=== PATIENT | male | born 1960 | race African-American/Black ===

== ENCOUNTER 2016-07-02 08:47 | Emergency (ER) ==
[2016-07-02] MEDS ORDERED: ASPIRIN PO STA (08:58)
[2016-07-02] MEDS ORDERED: NITROGLYCERIN SL PRN (08:58)
[2016-07-02] MEDS ORDERED: ASPIRIN ONE (09:01)
--- NOTE | 2016-07-02 09:06 | ED EKG INTERP ---
EKG Interpretation - EKG Time of EKG reading by physician:: 08:56 EKG Read and Signed by:: Manuel Pereira EKG Interpretation (*Must complete 3 of following elements*): Normal Rate: 80 Rhythm: NSR [place]: normal QRS: normal CT Interval: normal ST Wave: normal Attestation - Scribe Verification/Attestation Scribe:: Marcus Ramos Acting as Scribe for:: Manuel Pereira Scribe documention review:: This chart was documented by a scribe and accurately reflects the service the provider performed and the decisions made by the provider. Physician Attestation - Physician Attestation I, the provider, attest to the following statement:: Manuel Pereira Physician documentation Attestation:: This documentation recorded by the scribe accurately reflects the service I personally performed and the decisions made by me.
[2016-07-02 09:11] LABS: MANUAL DIFF NEEDED? NO
[2016-07-02 09:27] LABS: BASO% 0.5 % (0.0-0.8); EOS# 0.07 X1000 (0.0-0.7); EOS% 1.1 % (0.0-10.0); HEMATOCRIT 46.5 % (42.0-52.0); HEMOGLOBIN 15.4 g/dL (14.0-18.0); LYMPH# 2.08 X1000 (1.2-3.4); MCH 27.6 PG (27-31); MCHC 33.1 g/dL (33-37); MCV 83.5 FL (81-99); MONO# 0.82 X1000 (0.11-0.59); MPV 9.3 FL (7.4-10.4); NEUT% 52.4 % (42.2-75.2); PLT 324 X1000 (130-400); RBC 5.57 XMIL (4.7-6.1)
[2016-07-02 09:30] LABS: INR 1.03; PROTIME 10.9 Seconds (9.2-11.7); PTT 29.2 Seconds (22.0-36.0)
--- NOTE | 2016-07-02 10:01 | Diag Imaging Result Document ---
PROCEDURE NAME: CHEST-2 VIEWS - 07/02/2016 TWO VIEWS OF THE CHEST: FINDINGS: There is a calcified granuloma in the right middle lobe. There is callus on the posterior right 8th rib which was evidently on the previous study of 02/11/2016. There was also evidently a fracture of the 9th rib previously. The heart size and pulmonary vascularity are within normal limits. IMPRESSION: No evidence of acute disease.
[2016-07-02 10:02] LABS: AGAP 15; ALKALINE PHOSPHATASE 126 U/L (32-122); BUN 15 mg/dL (8-22); CALCIUM 9.4 mg/dL (8.8-10.2); CHLORIDE 97 mmol/L (98-107); CK PROFILE 115 U/L (24-204); COSMO 272; GOT 13 U/L (10-34); GPT 10 U/L (10-44); MAGNESIUM 1.9 mg/dL (1.5-2.7); POTASSIUM 3.9 mmol/L (3.5-5.1); SODIUM 135 mmol/L (136-145); TCO2 23 mmol/L (25-35); TOTAL BILIRUBIN 0.42 mg/dL (0.20-1.00); TOTAL PROTEIN 8.2 g/dL (6.3-8.3)
[2016-07-02 10:09] LABS: URINE CULTURE NEEDED? NO; URINE MICRO REVIEW NEEDED? NO; URINE SOURCE CLEAN CATCH
[2016-07-02 10:13] LABS: BILIRUBIN URINE NEGATIVE (NEGATIVE); BLOOD URINE NEGATIVE (NEGATIVE); COLOR YELLOW; GLUCOSE URINE NEGATIVE (NEGATIVE); LEUKOCYTES URINE NEGATIVE (NEGATIVE); NITRITE URINE NEGATIVE (NEGATIVE); PH URINE 5.5; PROTEIN URINE NEGATIVE (NEGATIVE); SP GRAVITY URINE 1.017; TURBIDITY URINE CLEAR (CLEAR); UROBILINOGEN URINE NORMAL (NORMAL)
[2016-07-02 10:14] LABS: UR EPITHELIAL CELLS <10 /HPF (<10); URINE BACTERIA NEGATIVE /HPF; URINE RBC <10 /HPF (<10); URINE WBC <10 /HPF (<10)
[2016-07-02] MEDS ORDERED: CATAPRES PO ONE (10:26)
--- NOTE | 2016-07-02 10:32 | PROVIDER DOCUMENTATION ---
HPI-Chest Pain - General Chief Complaint: Chest Pain Stated Complaint: CP Time Seen by Provider: 07/02/16 10:17 Source: patient Allergies/Adverse Reactions: Patient Allergies Allergy/AdvReac Type Severity Reaction Status Date / Time No Known Allergies Allergy Verified 07/02/16 10:16 Home Medications: Home Medication List Medication Instructions Recorded Confirmed Last Taken Type Cyclobenzaprine [Flexeril] 10 mg PO TID #20 tablet 07/02/16 Unknown Rx Famotidine [Pepcid] 20 mg PO DAILY #20 tablet 07/02/16 Unknown Rx Ibuprofen [Motrin] 100 mg PO QAM PRN 07/02/16 07/02/16 1 Week Ago History Ibuprofen [Motrin] 800 mg PO Q8H PRN PRN #20 tablet 07/02/16 Unknown Rx Lisinopril 20 mg PO DAILY #30 tablet 07/02/16 Unknown Rx - History of Present Illness-CP Nature of Presenting Problem: 56 year old AAM presents with c/o left sided chest pain, non-radiating, exacerbated with movement forward and sitting up. pt reports it started 17 days ago upon awakening. pain is dull, constant. pt reports he has a history of HTN but is currently not taking anything to treat because he does not have a PMD. pt reports associated shortness of breath. denies nausea, vomiting, diaphoresis. pt reports he has been evaluated for this same pain years ago when he had a similar episode. Location: reports: other (left chest) Chest Pain Radiation: reports: no radiation Quality of Pain: reports: aching, dull Severity in ED: mild Onset/Duration: other (17 days ago) Timing: still present, constant Context/Activities at Onset: reports: none. denies: light activity, moderate activity, vigorous activity, recent emotional stress, recent physical stress, recent trauma history, possible bad food, cold exposure, eating, out of country travel, rest, sleep, sexual activity, other Modifying Factors: improves with: nothing Associated Symptoms: reports: shortness of breath. denies: abdominal pain, back pain, diaphoresis, dizziness, edema, fatigue, fever/chills, headache, heartburn, nausea, swelling/lump in chest, syncope, vomiting, weakness Nitro Today/Relief: provided by ED, no relief Aspirin Treatment Today: no aspirin today Prior Chest Pain/Cardiac Workup: denies: heart attack, pulmonary embolism, stress test Similar Symptoms Previously?: Yes Recently Seen Here or By Another Healthcare Provider: No Review of Systems - Adult - REVIEW OF SYSTEMS - ADULT Constitutional: reports: no symptoms reported. denies: chills, fever, fatique Eyes: reports: no symptoms reported. denies: discharge, blurred vision, double vision Ears, Nose, Mouth & Throat: reports: no symptoms reported. denies: ear discharge, ear pain, nose pain, loose teeth, throat pain, throat swelling Cardiovascular: reports: see HPI, chest pain. denies: edema, heart murmur, irregular heart rate, orthopnea, palpitations, poor circulation, PND, syncope Respiratory: reports: no symptoms reported. denies: chronic cough, cough, shortness of breath, wheezing Gastrointestinal: reports: no symptoms reported. denies: abdominal pain, diarrhea, nausea, vomiting Genitourinary: reports: no symptoms reported. denies: dysuria, hematuria, urgency Musculoskeletal: reports: no symptoms reported. denies: bone pain, joint pain, joint swelling, neck pain Integumentary: reports: no symptoms reported. denies: hives, itching, skin sores/ulcer Neurological: reports: no symptoms reported. denies: ataxia, seizure, tremors Psychiatric: reports: no symptoms reported Endocrine: reports: no symptoms reported Hematologic/Lymphatic: reports: no symptoms reported Allergic/Immunologic: reports: no symptoms reported All Other Systems: Reviewed and Negative Past History - Adult - PAST MEDICAL HISTORY-ADULT Review of Records: reports: Old Records Reviewed, Nursing Assessment Review, Medications Reviewed, Social history reviewed & non-contributory. Major Childhood Illnesses: reports: denies history Cardiovascular: reports: HTN Respiratory: reports: denies history Gastrointestinal: reports: denies history Obstetrical/Gynecological: reports: denies history Genitourinary: reports: denies history Musculoskeletal: reports: arthritis (gout), other (gout) Neurological: reports: denies history Endocrine/Immune: reports: denies history Other Conditions: reports: denies history Additional History: Gout - PRIOR SURGERIES/PROCEDURES Surgical/Procedure History: reports: none - PRIOR HOSPITALIZATIONS Prior Hospitalizations: reports: none - IMMUNIZATION STATUS Childhood Immunizations: See Nurse Assessment Flu Vaccine: See Nurse Assessment - FAMILY HISTORY Family History: reviewed, not pertinent - SOCIAL HISTORY Smoking: cigarettes, greater than 1 pack/day Provider spent 3-5 mins advising pt. on dangers of tobacco.: Discussed manners to quit use, and f/u contacts for add'l counseling. Substance Use: none/never Alcohol Use Frequency: never Physical Exam-General - PHYSICAL EXAM-ADULT Initial Vital Signs Reviewed: Yes - CONSTITUTIONAL General Appearance: appears well, alert, no apparent distress. negative: mild distress, moderate distress, severe distress - EYES Eyes: pink conjunctivae. negative: conjuctival exudate, sclera injected, scleral icterus, subconjunctival hemorrhage - HEAD, EARS, NOSE, MOUTH & THROAT HENMT: normocephalic/atraumatic, moist mucous membranes, normal ENT inspection - NECK Neck: non-tender, full range of motion, supple, normal inspection. negative: C- spine tenderness, limited range of motion, tender lateral, tender midline - RESPIRATORY Respiratory: chest non-tender, lungs clear, normal breath sounds, no pleuratic chest pain, no respiratory distress, no accessory muscle use. negative: respiratory distress, decreased breath sounds, accessory muscle use, crackles, rales, rhonchi, stridor, wheezing - CARDIOVASCULAR Cardiovascular: normal peripheral pulses, regular rate, rhythm, no edema, no gallop, no JVD, no murmur - CHEST (BREASTS) Chest/Breast: tenderness (with leaning forward during exam.) - GASTROINTESTINAL (ABDOMEN) Abdominal Exam: normal bowel sounds, non tender, soft, no organomegaly, no pulsatile mass. negative: distended, guarding, rigid, rebound, hernia, mass, hepatomegaly, spleenomegaly - GENITOURINARY Male Genitalia: deferred Rectal Exam: deferred Hemoccult Exam: deferred - LYMPHATIC Lymphatic: no adenopathy - MUSCULOSKELETAL Back Exam: normal inspection, no CVA tenderness, no vertebral tenderness. negative: CVA tenderness, decreased range of motion, ecchymosis, swelling, vertebral tenderness Extremity: normal range of motion, non-tender, normal gait, normal inspection, no pedal edema, no calf tenderness. negative: deformity, erythema, inflammation Peripheral Pulses: radial (R): 3+, radial (L): 3+, dorsalis-pedis (R): 3+, dorsalis-pedis (L): 3+ - SKIN Integumentary: normal color, normal turgor, warm/dry - NEUROLOGIC Neurologic: grossly normal, no motor/sensory deficits - PSYCHIATRIC Psych/Mental Status: normal mood/affect, normal thought content, normal thought process, oriented x 3 Progress - PLAN OF CARE/RESULTS Progress/Plan/Lab Results: Laboratory Tests 07/02/16 07/02/16 07/02/16 09:02 09:02 09:02 WBC 6.30 RBC 5.57 Hgb 15.4 Hct 46.5 MCV 83.5 MCH 27.6 MCHC 33.1 RDW Std Deviation 13.9 Plt Count 324 MPV 9.3 Neut % (Auto) 52.4 Lymph % (Auto) 33.0 [place] % (Auto) 13.0 H Eos % (Auto) 1.1 Baso % (Auto) 0.5 Neut # (Auto) 3.30 Lymph # (Auto) 2.08 [place] # (Auto) 0.82 H Eos # (Auto) 0.07 Baso # (Auto) 0.03 PT INR PTT (Actin FS) D-Dimer 0.53 H Sodium 135 L Potassium 3.9 Chloride 97 L Carbon Dioxide 23 L Anion Gap 15 BUN 15 Creatinine 1.1 Estimated GFR/1.73 m2 > 60 BUN/Creatinine Ratio 14 Glucose 109 H Calculated Osmolality 272 Calcium 9.4 Magnesium 1.9 Total Bilirubin 0.42 AST 13 ALT 10 Alkaline Phosphatase 126 H Creatine Kinase 115 Troponin T [id number]-Redvaummlxp Pept Total Protein 8.2 Albumin 4.0 Globulin 4.2 Albumin/Globulin Ratio 1.0 Urine Source Urine Color Urine Turbidity Urine pH Ur Specific [place] Urine Protein Ur Glucose (Stick) Ur Ketones (Stick) Urine Blood Urine Nitrite Urine Bilirubin Urobilinogen Dipstick Urine Leukocytes Urine WBC (Auto) Urine RBC (Auto) U Epithel Cells (Auto) Urine Bacteria (Auto) Urine Opiates Screen Ur Oxycodone Screen Ur Methadone, Qual Ur Barbiturates Screen Ur Phencyclidine Scrn Ur Amphetamines Screen U Benzodiazepines Scrn Urine Cocaine Screen U Cannabinoids Screen 07/02/16 07/02/16 07/02/16 09:02 09:02 09:02 WBC RBC Hgb Hct MCV MCH MCHC RDW Std Deviation Plt Count MPV Neut % (Auto) Lymph % (Auto) [place] % (Auto) Eos % (Auto) Baso % (Auto) Neut # (Auto) Lymph # (Auto) [place] # (Auto) Eos # (Auto) Baso # (Auto) PT 10.9 INR 1.03 PTT (Actin FS) 29.2 D-Dimer Sodium Potassium Chloride Carbon Dioxide Anion Gap BUN Creatinine Estimated GFR/1.73 m2 BUN/Creatinine Ratio Glucose Calculated Osmolality Calcium Magnesium Total Bilirubin AST ALT Alkaline Phosphatase Creatine Kinase Troponin T < 0.010 Ffw-O-Egckuuxzopu Pept 42 Total Protein Albumin Globulin Albumin/Globulin Ratio Urine Source Urine Color Urine Turbidity Urine pH Ur Specific [place] Urine Protein Ur Glucose (Stick) Ur Ketones (Stick) Urine Blood Urine Nitrite Urine Bilirubin Urobilinogen Dipstick Urine Leukocytes Urine WBC (Auto) Urine RBC (Auto) U Epithel Cells (Auto) Urine Bacteria (Auto) Urine Opiates Screen Ur Oxycodone Screen Ur Methadone, Qual Ur Barbiturates Screen Ur Phencyclidine Scrn Ur Amphetamines Screen U Benzodiazepines Scrn Urine Cocaine Screen U Cannabinoids Screen 07/02/16 07/02/16 07/02/16 10:00 10:00 10:10 WBC RBC Hgb Hct MCV MCH MCHC RDW Std Deviation Plt Count MPV Neut % (Auto) Lymph % (Auto) [place] % (Auto) Eos % (Auto) Baso % (Auto) Neut # (Auto) Lymph # (Auto) [place] # (Auto) Eos # (Auto) Baso # (Auto) PT INR PTT (Actin FS) D-Dimer Sodium Potassium Chloride Carbon Dioxide Anion Gap BUN Creatinine Estimated GFR/1.73 m2 BUN/Creatinine Ratio Glucose Calculated Osmolality Calcium Magnesium Total Bilirubin AST ALT Alkaline Phosphatase Creatine Kinase 127 Troponin T Kap-T-Bjcjtepnjwr Pept Total Protein Albumin Globulin Albumin/Globulin Ratio Urine Source CLEAN CATCH Urine Color YELLOW Urine Turbidity CLEAR Urine pH 5.5 Ur Specific [place] 1.017 Urine Protein NEGATIVE Ur Glucose (Stick) NEGATIVE Ur Ketones (Stick) NEGATIVE Urine Blood NEGATIVE Urine Nitrite NEGATIVE Urine Bilirubin NEGATIVE Urobilinogen Dipstick NORMAL Urine Leukocytes NEGATIVE Urine WBC (Auto) <10 Urine RBC (Auto) <10 U Epithel Cells (Auto) <10 Urine Bacteria (Auto) NEGATIVE Urine Opiates Screen NONE DETECTED Ur Oxycodone Screen NONE DETECTED Ur Methadone, Qual NONE DETECTED Ur Barbiturates Screen NONE DETECTED Ur Phencyclidine Scrn NONE DETECTED Ur Amphetamines Screen NONE DETECTED U Benzodiazepines Scrn NONE DETECTED Urine Cocaine Screen NONE DETECTED U Cannabinoids Screen PRESUMPTIVE POSITIVE A 07/02/16 10:10 WBC RBC Hgb Hct MCV MCH MCHC RDW Std Deviation Plt Count MPV Neut % (Auto) Lymph % (Auto) [place] % (Auto) Eos % (Auto) Baso % (Auto) Neut # (Auto) Lymph # (Auto) [place] # (Auto) Eos # (Auto) Baso # (Auto) PT INR PTT (Actin FS) D-Dimer Sodium Potassium Chloride Carbon Dioxide Anion Gap BUN Creatinine Estimated GFR/1.73 m2 BUN/Creatinine Ratio Glucose Calculated Osmolality Calcium Magnesium Total Bilirubin AST ALT Alkaline Phosphatase Creatine Kinase Troponin T < 0.010 Pbc-X-Phheidvbalu Pept Total Protein Albumin Globulin Albumin/Globulin Ratio Urine Source Urine Color Urine Turbidity Urine pH Ur Specific [place] Urine Protein Ur Glucose (Stick) Ur Ketones (Stick) Urine Blood Urine Nitrite Urine Bilirubin Urobilinogen Dipstick Urine Leukocytes Urine WBC (Auto) Urine RBC (Auto) U Epithel Cells (Auto) Urine Bacteria (Auto) Urine Opiates Screen Ur Oxycodone Screen Ur Methadone, Qual Ur Barbiturates Screen Ur Phencyclidine Scrn Ur Amphetamines Screen U Benzodiazepines Scrn Urine Cocaine Screen U Cannabinoids Screen Orders Category Date Time Status Cardiac Monitoring DIRECTED Care 07/02/16 08:58 Active Saline Loc NOW Care 07/02/16 08:58 Active CHEST-2 VIEWS [RAD] Stat Exams 07/02/16 08:58 Completed CTA [ANGIOGRAM/PULMONARY ARTERIES] [CT] Stat Exams 07/02/16 10:26 Draft CBC WITH ELECTRONIC DIFF [HEME] Stat Lab 07/02/16 09:02 Completed CK PROFILE [SP CHEM] Stat Lab 07/02/16 09:02 Completed CK PROFILE [SP CHEM] Stat Lab 07/02/16 10:10 Completed COMPREHENSIVE METABOLIC PANEL [CHEM] Stat Lab 07/02/16 09:02 Completed D-DIMER [CHEM] Stat Lab 07/02/16 09:02 Completed MAGNESIUM [CHEM] Stat Lab 07/02/16 09:02 Completed PRO B-NATRIURETIC PEPTIDE Stat Lab 07/02/16 09:02 Completed PROTIME WITH INR [COAG] Stat Lab 07/02/16 09:02 Completed PTT [COAG] Stat Lab 07/02/16 09:02 Completed TROPONIN T Stat Lab 07/02/16 09:02 Completed TROPONIN T Stat Lab 07/02/16 10:10 Completed UA NIMS W/REFLEX CULT [URINALYSIS] Stat Lab 07/02/16 10:00 Completed UDS [URINE DRUG SCREEN] Stat Lab 07/02/16 10:00 Completed Aspirin Med 03/01/17 09:01 Discontinued 325 mg .ROUTE .STK-MED ONE Aspirin Med 07/02/16 08:58 Discontinued 325 mg PO STAT STA Clonidine [Catapres] Med 07/02/16 10:26 Discontinued 0.1 mg PO NOW ONE Ketorolac [Toradol] Med 07/02/16 12:38 Discontinued 30 mg IV NOW ONE Nitroglycerin Sl [Nitroglycerin] Med 07/02/16 08:58 Discontinued 0.4 mg SL Q5M PRN PRN EKG [EKG] Stat Ther 07/02/16 08:52 Ordered Vital Signs - 24 hr 07/02/16 07/02/16 07/02/16 08:52 10:20 10:34 Temperature 98.6 F 98 F Pulse Rate 85 67 71 Respiratory 18 16 Rate Blood Pressure 157/95 159/114 177/99 O2 Sat by Pulse 98 98 98 Oximetry 07/02/16 07/02/16 11:55 12:46 Temperature 98 F 98 F Pulse Rate 67 70 Respiratory 18 18 Rate Blood Pressure 132/97 143/87 O2 Sat by Pulse 98 98 Oximetry - REASSESSMENT Reassessment #1 Time Reassessed: 12:45 Status: improving - XRAY 1 XRAY Study: Chest Impression: Normal (no evidence of acute disease. per Dr. Monk) - CT/MRI 1 CT Study: Angiogram, Thorax Impression: Normal (no pulmonary embolus or acute disease. per Dr. Monk.) Departure - Departure Time of Disposition Order: 12:38 DIAGNOSIS: Chest pain, muscular Hypertension Qualifiers: Hypertension type: essential hypertension Qualified Code(s): I10 - Essential ( primary) hypertension Disposition: HOME 01 Certified Medical Emergency: Emergent Condition: Stable Additional Instructions: Follow up with Dr. Ojeda. Take motrin as needed for the chest pain. ED Follow Up Instructions: You have been treated by a care provider in the Emergency Department. These instructions are being provided to you so you can have an understanding of how to care for yourself upon discharge. Upon discharge from the Emergency Department, you are responsible for making arrangements for follow-up care by a physician of your choice. Take all prescribed medications as directed. Return to the Emergency Department immediately for any new or worsening symptoms. You may call the Physician Referral phone number at [phone] to obtain a list of Physicians who are taking new patients. Prescriptions: Cyclobenzaprine [Flexeril] 10 mg PO TID #20 tablet Lisinopril 20 mg PO DAILY #30 tablet Ibuprofen [Motrin] 800 mg PO Q8H PRN PRN #20 tablet PRN Reason: inflammation Famotidine [Pepcid] 20 mg PO DAILY #20 tablet Referrals: None,PCP [Primary Care Provider] - Zakia Ojeda MD [STAFF PHYSICIAN] - Forms: Return to School/Parent Work Instructions: Nonspecific Chest Pain, [id number], Hypertension, [id number] Attestation - Physician/ KISHA Attestation Patient care was provided by Advanced Practice Provider:: Yes Advanced Practice Provider:: Jeremy Carter Advanced Practice Provider documentation review:: The Mid-level provider documentation, treatment plan and medical decision making was reviewed by the physician who agrees with all treatment and medical decision making by the MLP.
--- NOTE | 2016-07-02 11:19 | Diag Imaging Result Document ---
PROCEDURE NAME: ANGIOGRAM/PULMONARY ARTERIES - 07/02/2016 CT PULMONARY ANGIOGRAM WITH INTRAVENOUS CONTRAST, 07/02/2016: COMPARISON: None. TECHNIQUE: Axial CT images of the chest were obtained after administering intravenous contrast. Coronal MIP images were generated. FINDINGS: There is no pulmonary embolism. Heart and great vessels are normal. No adenopathy. There is a small calcified granuloma in the right middle lobe. The lungs are clear of infiltrate. There are some healing posterior and lateral right rib fractures. These are in ribs 8-10. Ribs 9 and 10 appeared to be fractured twice. There is significant surrounding callus formation with near complete bony bridging. IMPRESSION: Healing right-sided rib fractures. No pulmonary embolism or acute disease.
[2016-07-02 12:29] LABS: UR AMPHETAMINES QUAL NONE DETECTED (NONE DETECT); UR BARBITUATES QUAL NONE DETECTED (NONE DETECT); UR BENZODIAZEPIN QUAL NONE DETECTED (NONE DETECT); UR CANNABINOIDS QUAL PRESUMPTIVE POSITIVE (NONE DETECT); UR COCAINE QUAL NONE DETECTED (NONE DETECT); UR METHADONE QUAL NONE DETECTED (NONE DETECT); UR OPIATES QUAL NONE DETECTED (NONE DETECT); UR OXYCODONE QUAL NONE DETECTED (NONE DETECT); UR PCP QUAL NONE DETECTED (NONE DETECT)
[2016-07-02] MEDS ORDERED: TORADOL IV ONE (12:38)
[2016-07-02 12:47] VITALS: BP 143/87
--- NOTE | 2016-07-03 05:44 | EKG Report ---
Test Performed on : 07/02/2016 08:56:19 AM Test Reason : cp Blood Pressure : / mmHG Vent. Rate : 080 BPM Atrial Rate : 080 BPM P-R Int : 134 ms QRS Dur : 092 ms QT Int : 386 ms P-R-T Axes : 060 002 049 degrees QTc Int : 445 ms Normal sinus rhythm. with sinus arrhythmia. Normal ECG When compared with ECG of 04-MAY-2015 01:03, Vent. rate has increased BY 29 BPM Unconfirmed Result
== END 2016-07-02 12:53 | disposition home or self-care (01) ==
LOC: ED 08:47
DX: R07.89 Other chest pain (principal); M79.1 Myalgia; I10 Essential (primary) hypertension; R06.02 Shortness of breath; M19.90 Unspecified osteoarthritis, unspecified site; F17.210 Nicotine dependence, cigarettes, uncomplicated; Z79.899 Other long term (current) drug therapy
CPT/HCPCS: 71020; 71275; 80053; 81001; 82550; 83735; 83880; 84484; 85025; 85379; 85610; 85730; 93005; G0480; J1885; Q9967; 80324; 80345; 80346; 80349; 80353; 80358; 80361; 80365; 83992